=== PATIENT | male | born 1960 | race Caucasian/White ===

== ENCOUNTER 2017-06-19 15:09 | Emergency (ER) | payer SELFPAY ==
[2017-06-19] MEDS ORDERED: NACL 0.9% 1000 ML 2,000 ML ONE (15:13)
[2017-06-19] MEDS ORDERED: SUBLIMAZE IV ONE (15:21)
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
[2017-06-19] MEDS ORDERED: ZOFRAN IV ONE (15:24)
[2017-06-19] MEDS ORDERED: NACL 0.9% 1000 ML 1,000 ML IV ONE (15:24)
[2017-06-19] MEDS ORDERED: BOOSTRIX IM ONE (15:33)
[2017-06-19] MEDS ORDERED: TYLENOL PO ONE (15:51)
--- NOTE | 2017-06-19 16:08 | XRay Report ---
FINAL REPORT EXAM: XR CHEST 1V AP HISTORY: shortness of breath TECHNIQUE: Single, portable chest x-ray. PRIORS: None. FINDINGS: Cardiac and mediastinal silhouette within normal limits. Lungs are normally expanded, without significant vascular congestion. No focal consolidation or apparent pneumothorax. Bony thorax grossly unremarkable. IMPRESSION: 1. No acute findings.
[2017-06-19 16:22] VITALS: BP 143/90
[2017-06-19 16:22] LABS: INR 0.92 (0.87-1.13)
[2017-06-19 16:23] LABS: Partial Thromboplastin Time 31.2 Sec. (24.2-36.6)
[2017-06-19 16:31] LABS: Alanine Aminotransferase 13 units/L (7-56); BUN/Creatinine Ratio 17; Blood Urea Nitrogen 10 mg/dL (9-20); Calcium 7.7 mg/dL (8.4-10.2); Hemolysis Index 13
[2017-06-19 16:38] LABS: Basophils % (Auto) 0.5 % (0.0-1.8); Eosinophils % (Auto) 2.9 % (0.0-4.3); Hematocrit 39.7 % (35.5-45.6); Hemoglobin 12.8 gm/dl (11.8-15.2); Lymphocytes # (Auto) 2.5 K/mm3 (1.2-5.4); Mean Corpuscular HGB Conc 32 % (32-34); Mean Corpuscular Hemoglobin 21 pg (28-32); Mean Corpuscular Volume 66 fl (84-94); Mean Platelet Volume 7.5 fl (6-12); Monocytes % (Auto) 4.6 % (0.0-7.3); Platelet Count 367 K/mm3 (140-440)
[2017-06-19 16:39] LABS: Basophils # (Auto) 0.1 K/mm3 (0.0-0.1); Eosinophils # (Auto) 0.4 K/mm3 (0.0-0.4); Monocytes # (Auto) 0.6 K/mm3 (0.0-0.8)
== END 2017-06-19 16:30 | disposition short-term general hospital (02) ==
LOC: ED 15:09
DX: T20.20XA Burn of second degree of head, face, and neck, unspecified site, initial encounter (principal); T23.202A Burn of second degree of left hand, unspecified site, initial encounter; T23.201A Burn of second degree of right hand, unspecified site, initial encounter; T21.21XA Burn of second degree of chest wall, initial encounter; T31.22 Burns involving 20-29% of body surface with 20-29% third degree burns; W40.1XXA Explosion of explosive gases, initial encounter; Y93.G3 Activity, cooking and baking; Y99.8 Other external cause status; Y92.090 Kitchen in other non-institutional residence as the place of occurrence of the external cause
CPT/HCPCS: 36415; 71045; 80053; 85025; 85610; 85730; 90471; 90715; 96361; 96374; 96375; 99291; J2405; J3010; J7030